=== PATIENT | female | born 1945 | race Caucasian/White ===

== ENCOUNTER 2017-03-04 03:28 | Inpatient (IN) | payer OTHER, MEDICARE ==
[~2017-03-04] VITALS: Ht 175.3 cm; Wt 91.6 kg
[~2017-03-04 03:28] MED LIST: HYDROCHLOROTHIA50 MG PO; LEVOTHYROXIN0.025 MG PO; METOPROLOL SUC100 M1 PO; PREDNISONE5 MG PO; TELMISARTAN80 MG PO; TRAMADOL50 MG PO
[2017-03-22] MEDS ORDERED: LASIX40 M1 PO (07:50)
[2017-03-22] MEDS ORDERED: AMLODIPINE BESY10 M1 PO (07:50)
[2017-03-22] MEDS ORDERED: LO-DOSE ASPIRIN81 MG PO (07:51)
[2017-03-22] MEDS ORDERED: SERTRALINE HCL50 MG PO (07:51)
--- NOTE | 2017-03-25 08:35 | Admission Core Measures ---
Acute Coronary Syndrome (CM) ACS Core Measures Acute Coronary Syndrome Diagnosis No Congestive Heart Failure (NEW) CHF Core Measures Congestive Heart Failure Diagnosis No Cerebrovascular Accident (NEW) CVA Core Measures CVA/TIA Diagnosis No Venous Thromboembolism VTE Core Ranjana (View Protocol) VTE Risk Factors Surgery No Mechanical VTE Prophylaxis d/t N/A MechProphylax Ordered No VTE Pharm Prophylaxis d/t NA PharmProphylax ordered Problem List As ranked by this Provider includes Assessment & Plan 1. Carotid stenosis HOME MEDS Home Med List Amlodipine Besylate 10 MG TABLET 1 TAB PO DAILY BP (Reported) Aspirin (Lo-Dose Aspirin EC) 81 MG TABLET.DR 1 PO DAILY HEART HEALTH ( Reported) Furosemide (Lasix) 40 MG TABLET 1 TAB PO EOD FLUID (Reported) Levothyroxine Sodium 0.025 MG TAB 1 TAB PO DAILY THYROID (Reported) Metoprolol Succinate (Metoprolol Succinate XL) [address] 1 TAB PO DAILY BP ( Reported) Prednisone 5 MG TAB 1 TAB PO D BACK PAIN (Reported) Sertraline HCl 50 MG TABLET 1 TAB PO DAILY DEPRESSION (Reported) Telmisartan 80 MG TAB 1 TAB PO D BP (Reported) TRAMADOL HCL (Tramadol) 50 MG TAB 1 TAB PO Q6P PRN PAIN (Reported)
--- NOTE | 2017-03-25 10:39 | Operative Report ---
Operative/Inv Procedure Report Surgery Date: 03/25/17 Name of Procedure: Right carotid thromboendarterectomy with bovine patch angioplasty Pre-Operative Diagnosis: Symptomatic right high-grade carotid stenosis Post-Operative Diagnosis: Symptomatic right high-grade carotid stenosis Estimated Blood Loss: less than 50ml Surgeon/Weed Sprayer: Emre Villafuerte MD, Shahmohammadi MD, Kaveh (asst.) Anesthesia: block Implants: Bovine pericardial patch Complications: None Condition: Stable to PACU Operative Indication: 71-year-old female with a history of amaurosis fugax and a high-grade right internal carotid stenosis. Risks benefits and alternatives of intervention were explained to the patient including bleeding infection pain scar nerve injury limb loss and . She decided proceed with intervention. Operative/Procedure Note Note: Patient was brought to the operating room table and laid supine on the table. After adequate anesthesia, IV lines, timeout was held in accordance with [facility] policy. Of note Charan office manager executive assistant was required on this case due to the complexity of the case in the lack of suitable PA or resident to assist. A incision was made over the anterior border of the sternocleidomastoid. Sharp dissection was carried down to the skin and subcutis tissue to the level of the carotid sheath. Dissection was carried out with Bovie electrocautery and a 15 blade. It was dissected free proximally & distally in a longitudinal direction. The carotid artery was dissected free. The proximal carotid, internal carotid and external carotid were all circumferentially controlled and prepared for arteriotomy. The patient was then bolused with 5000 units of heparin. Sandhu scissors was used to open the artery and this was extended into the internal carotid artery once all occluding clamps had been applied. Of note the patient remained neurologically intact throughout the procedure and was monitored under cervical block by using a compression toilet. The artery once opened was endarterectomized. Using a [place] elevator the plaque was removed and passed off the field as specimen. The distal intima was tacked down with interrupted Prolene sutures. The debris was removed with ring forceps. A bovine pericardial patch was then brought into the field and fashioned appropriately. It was sewn on the anterior surface of the artery and tied down with a running 6-0 Prolene suture. All occluding clamps were removed. An area of bleeding was noted on the posterior portion of the artery likely related to a small tear. This was repaired with a single 6-0 Prolene suture. Good pulsatile flow was noted into the distal internal carotid artery and this was confirmed with a Doppler. The wound was ankle to irrigated. Hemostatic Gelfoam and thrombin as well as Surgi-Alex was used to aid in hemostasis. A Vicryl suture and skin erlin were used to close the incision and skin. 10 mL of Marcaine were infiltrated into the wound for analgesia. The sponge needle and some counts were correct. The patient tolerated the procedure well was transported to the recovery area stable awake and alert.
--- NOTE | 2017-03-25 11:43 | PN- Vascular Surgery ---
Subjective Subjective: Post op check Awake and alert post op Tolerating water and ice chips - no difficulty swallowing Complaining of dry mouth, denies pain, weakness or nausea Objective Vital Signs and I&Os bp 118/65 HR 68 Reg RR 16 Sat 97% 3LNC afebrile Physical Exam: General: alert and oriented times three Chest: clear anteriorly bilaterally, RRR Abd: soft, good bs Neuro: +facial droop on the right not present pre-op, tongue protrudes in midline, mild slurring of speech Ext: warm, no edema, normosensate all 4 ext, good 5/5 CHAVA all 4 ext, no calf tenderness Wd: dressed, dry, ice pack in place Assessment/Plan Assessment/Plan 71yo female s/p R CEA facial droop post op - Dr Villafuerte aware, discussed with patient that it will likely resolve completely ICU overnight for monitoring all home meds restarted asa daily for dvt ppx - begin in recovery room clear liquids tonight regular diet in am Core Measures Venous Thromboembolism VTE Risk Factors Surgery No Mechanical VTE Prophylaxis d/t N/A MechProphylax Ordered No VTE Pharm Prophylaxis d/t NA PharmProphylax ordered
--- NOTE | 2017-03-25 11:47 | Surg Short-stay <48hrs Dis Sum ---
See Addendum Visit Information Visit Dates Admission Date: 03/25/17 Discharge Date: 03/26/17 Surgical Short Stay DC Summary Admission Diagnosis: Carotid stenosis Final Diagnosis: Same, s/p R CEA Procedure(s): R CEA with patch angioplasty See operative report Summary/Significant Findings: Pt underwent a R CEA by Dr Villafuerte and was brought to the ICU in stable condition. Post operatively it was noted that she had a facial droop on the right with mild slurred speech. No other neuro deficits were noticed. She was able to swallow without difficulty. She was restarted on aspirin daily for dvt ppx. She remained in the ICU overnight for close monitoring. On the first post op day she was stable, without pain and was able to tolerate a regular diet. She was discharged home to follow up with Dr Villafuerte. Her post op facial weakness was discussed with her in detail and will likely resolve. This will be evaluated at her post op visit. Condition at Discharge: good Discharge Disposition: home or self care Discharge instructions provided to patient/family: Yes Post discharge follow-up plan: Appointment with Dr Villafuerte in 1-2 weeks Copies to: Christo GASCA,Emre
[2017-03-25] MEDS ORDERED: TYLENOL EXTRA500 M2 PO (11:48)
--- NOTE | 2017-03-25 11:50 | Patient Discharge Instructions ---
Discharge Instructions General Discharge Information You were seen/treated for: Carotid artery stenosis You had these procedures: Right Carotid endarterectomy Watch for these problems: temp>101, increased redness or drainage of wounds, increased weakness or slurring of speech, increased dizziness Do not soak the wound: Yes Other wound care: Keep incision clean and dry. May shower no bathing or soaking Diet Continue normal diet: Yes Activity Activity Self Limited: Yes Acute Coronary Syndrome Inclusion Criteria At DC or during hospital stay patient has or had the following: Discharge Core Measures Meds if any: Prescribed or Continued at Discharge Meds if any: NOT Prescribed or Continued at Discharge Congestive Heart Failure Inclusion Criteria At DC or during hospital stay patient has or had the following: Discharge Core Measures Meds if any: Prescribed or Continued at Discharge Meds if any: NOT Prescribed or Continued at Discharge Cerebrovascular accident Inclusion Criteria At DC or during hospital stay patient has or had the following: CVA/TIA Diagnosis No Discharge Core Measures Meds if any: Prescribed or Continued at Discharge Meds if any: NOT Prescribed or Continued at Discharge Venous thromboembolism Discharge Core Measures - Per Current guidelines, there needs to be overlap - treatment for the first 5 days of Warfarin therapy. - If discharged on Warfarin prior to 5 days of - overlap therapy, the patient will need to be - assessed for post discharge needs including - *Post discharge parental anticoagulation - *Warfarin and/or parental anticoagulation education - *Follow up date to check INR post discharge Meds if any: Prescribed or Continued at Discharge Note: Overlap Therapy is Warfarin and Anticoagulant Meds if any: NOT Prescribed or Continued at Discharge
[2017-03-25 12:00] VITALS: BP 108/54
[2017-03-25 16:00] VITALS: BP 112/50
[2017-03-26] VITALS: BP 114/78
[2017-03-26 05:14] LABS: ABSOLUTE BASOPHIL COUNT 0 /CUMM (0.0-0.2); ABSOLUTE EOSINOPHIL COUNT 0.2 /CUMM (0.0-0.7); ABSOLUTE GRANULOCYTE CT 7.7 /CUMM (1.4-6.5); ABSOLUTE LYMPH COUNT 2.4 /CUMM (1.2-3.4); ABSOLUTE MONOCYTE COUNT 0.9 /CUMM (0.10-0.60); BASOPHIL % 0.3 % (0.0-2.0); EOSINOPHIL % 1.7 % (0-5); GRANULOCYTE % 68.5 % (42.2-75.2); HEMATOCRIT 33.7 % (37-47); MEAN CORPUSCULAR HGB 28.5 PG (27.0-31.0); MEAN CORPUSCULAR HGB CONC 32.4 G/DL (33.0-37.0); MEAN CORPUSCULAR VOLUME 87.9 FL (81.0-99.0); MEAN PLATELET VOLUME 9.2 FL (7.4-10.4); PLATELET COUNT 307 /CUMM (130-400); RED BLOOD CELL CT 3.83 /CUMM (4.20-5.40); WHITE BLOOD CELL COUNT 11.2 /CUMM (4.8-10.8)
[2017-03-26] MEDS ORDERED: PERCOCET 5-3251 EACH PO ×2 (05:58→08:52)
--- NOTE | 2017-03-26 06:03 | PN- Vascular Surgery ---
Subjective Subjective: Awake, alert No complaints overnight Did require percocet for pain Mild nausea earlier - no vomiting Objective Vital Signs and I&Os Vital Signs Date Time Temp Pulse Resp B/P B/P Pulse O2 O2 Flow FiO2 Mean Ox Delivery Rate 03/26 0400 99 Nasal 2.0L Cannula 03/26 0000 97.4 46 18 114/78 97 Nasal 2.0L Cannula 03/26 0000 98 Nasal 2.0L Cannula 03/25 1999 99 Nasal 2.0L Cannula 03/25 1600 98 Nasal 2.0L Cannula 03/25 1600 97.1 50 14 112/50 98 Nasal 2.0L Cannula 03/25 1200 100 Nasal 2.0L Cannula 03/25 1200 96.4 53 16 108/54 100 Nasal 2.0L Cannula Intake & Output 03/26 0800 03/26 0000 03/25 1600 03/25 0800 03/25 0000 03/24 1600 Intake Total 1270 1591 Output Total 500 Balance 770 1591 Intake, IV 790 1171 Intake, Oral 480 420 Output, Urine 500 Physical Exam: vss, afebrile General: alert and oriented times three Chest: clear anteriorly, RRR Abd: soft, good bs Ext: warm, no edema 5/5 CHAVA BLE, normosensate Wd: dressed, dry Neuro: mild facial droop on the right - improved from yesterday, tongue in midline Assessment/Plan Assessment/Plan 71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
[2017-03-26 08:00] VITALS: BP 168/70
[2017-03-26 10:45] VITALS: BP 168/64
[2017-03-26] MEDS ORDERED: ZOFRAN ODT4 M1 SL (11:24)
[2017-03-26 13:00] VITALS: BP 142/60
--- NOTE | 2017-03-26 18:38 | PN- Vascular Surgery ---
Surgical Brief Attending Note Brief Attending Note: Patient is now status post right carotid thromboendarterectomy with bovine patch angioplasty. No acute events overnight. She has no significant neurologic deficits. She has a slight marginal mandibular nerve palsy. She may be discharged home today on aspirin therapy. Follow-up a week from Saturday.
== END 2017-03-26 13:28 | DRG 38 ==
LOC: SDA 03:28 → UNDOADMIN 03:28 → SDA 03-25 03:35 → CRI 03-25 03:35 → ENRESERV 03-25 10:40 → ENTRNSPT 03-25 11:39 → EDTRNSPT 03-25 11:43 → EDTRNSPTSTS 03-25 11:43 → CMPTRNSPT 03-25 12:02 → CRI 03-25 12:15 → ENTRNSPT 03-26 13:15 → EDTRNSPT 03-26 13:19 → EDTRNSPTSTS 03-26 13:19 → CRI 03-26 13:28 → CMPTRNSPT 03-26 13:31
PROVIDERS: Physician Assistant Surgical
PROC: 03UK0KZ Supplement Right Internal Carotid Artery with Nonautologous Tissue Substitute, Open Approach (ICD-10-PCS; principal; 2017-03-25)
PROC: 03CK0ZZ Extirpation of Matter from Right Internal Carotid Artery, Open Approach (ICD-10-PCS; principal; 2017-03-25)
PROC: 3E0T3BZ Introduction of Anesthetic Agent into Peripheral Nerves and Plexi, Percutaneous Approach (ICD-10-PCS; 2017-03-25)
DX: I65.21 Occlusion and stenosis of right carotid artery (principal); N18.4 Chronic kidney disease, stage 4 (severe); I12.9 Hypertensive chronic kidney disease with stage 1 through stage 4 chronic kidney disease, or unspecified chronic kidney disease; Z87.891 Personal history of nicotine dependence; Z86.73 Personal history of transient ischemic attack (TIA), and cerebral infarction without residual deficits
CPT/HCPCS: CCU; SDA; 82436; C9399; J1644; J2405; J2720; J3490; J7508; J7512